=== PATIENT | female | born 1945 | race Caucasian/White ===

== ENCOUNTER 2025-07-18 21:41 | Emergency (ER) | payer MEDICARE ==
[~2025-07-18] VITALS: Ht 160 cm; Wt 82.4 kg
[~2025-07-18 21:41] MED LIST: LEVO100T PO; LOP12.5T PO; LOSA-415 PO; NOR5T PO; OMEP20TA23 PO; PHEN-786 PO; ROSU40TA89 PO; XAL0.005OS OP
--- NOTE | 2025-07-18 22:17 | Physician Documentation ---
History of Present Illness Chief Complaint: Flank Pain Stated Complaint: BACK PAIN Time Seen by MD: 22:03 Primary Medical Doctor: Dr. BARRAZA Source: patient Mode of Arrival: POV Exam Limitations: no limitations HPI 80-year-old female with complaints of generalized abdominal pain for approximately 30 days does have a doctor's appointment tomorrow but has been experiencing left flank pain that started around 630 tonight. Patient states the pain has been sharp and gassy pain and she battles intermittent diarrhea versus constipation. Patient states her last normal bowel movement was this morning and then had an episode of diarrhea. Patient states new onset left flank pain. Patient denies any nausea or vomiting. Patient states she had a recent colonoscopy a little over a year ago which she states was unremarkable. No history of diverticulitis or kidney stones. No fever chest pain or shortness of breath. Medication Reconciliation Allergies: Coded Allergies: Sulfa (Sulfonamide Antibiotics) (Unverified Allergy, Severe, HIVES, 01/10/25) Scheduled Amlodipine Besylate (Amlodipine Besylate), 5 MG PO DAILY Levothyroxine Sodium (Synthroid), 100 MCG PO DAILY, (Reported) Losartan Potassium* (Cozaar*), 2 TAB PO DAILY, (Reported) Metoprolol Tartrate (Lopressor tablet), 1 TAB PO Q12H, (Reported) Omeprazole Magnesium (Prilosec Otc), 20 MG PO DAILY, (Reported) Rosuvastatin Calcium (Rosuvastatin Calcium), 1 TAB PO DAILY, (Reported) Scheduled PRN Phenazopyridine Hcl (Pyridium tablet), 1 TAB PO Q8H PRN for bladder spasms Miscellaneous Medications Latanoprost (XALATAN ophth drops), 1 DROP OP, (Reported) Past Medical History Past Medical History: *CARDIOVASCULAR*, High Cholesterol, Hypertension, Hypothyroidism Past Surgical History: noncontributory Lives with: Spouse Lives In: Home Occupation: retired Review of Systems All Other Systems at this time: Reviewed and Negative Gastrointestinal: Reports: see HPI Physical Exam Vital Signs: Temperature: 97.7, Source: Oral, Heart Rate: 90, Respiratory Rate: 16, BP: 185/72, Pulse Oximetry: 97, Weight: 82.410 Oxygen Flow Rate: 0 Physical Exam General: Alert, no apparent distress. HEENT: PERRL, EOMI, no injection, moist mucous membranes. Neck: Full range of motion. Respiratory: Lungs clear, no respiratory distress. Chest: No accessory muscle use. Cardiovascular: Regular rate and rhythm, no murmurs. Gastrointestinal: Left flank pain during palpation no focal tenderness normal bowel sounds soft nonprotuberant Extremities: Normal range of motion, no deformity. Neurologic: Oriented x4. Psychiatric: Normal mood and affect. Skin: Normal color, warm and dry. No edema, no ecchymosis. Progress Results/Orders Results/Orders Vital Signs 07/18/25 21:43 Temp 97.7 Pulse 90 Resp 16 B/P (MAP) 185/72 Pulse Ox 97 O2 Flow Rate 0 EKG/XRAY/CT/US/VASC/MRI CT : Impression Exam: CT CT ABDOMEN PELVIS History: ABD PAIN left flank pain COMPARISON: None Technique: Multidetector spiral CT of the abdomen and pelvis was performed from lung bases to pubic symphysis. Intravenous contrast was not administered during this examination. Imaging was obtained. Axial, coronal and sagittal multiplanar reformats were performed by the technologist on a separate workstation. Radiation Dose : 1. Abdomen/Pelvis: CTDIvol 23.6 mGy, DLP 1167.75 mGy*cm. Findings: Lung Bases: No acute or significant lung base finding. Normal heart size. No pleural or pericardial effusion. Liver: Unremarkable Gallbladder and Biliary Tree: Unremarkable Spleen: Unremarkable Pancreas: Unremarkable Adrenal Glands: Unremarkable Kidneys: 4 mm obstructing stone in the distal left ureter, resulting in moderate left hydroureteronephrosis and perinephric edema Bladder: Unremarkable Bowel: Small hiatal hernia. The stomach is grossly normal in appearance. Small bowel and colon are normal in caliber and distribution. The appendix is normal. Ascites: Absent Lymphadenopathy: No mesenteric, retroperitoneal or periportal lymphadenopathy. Abdominal Wall and Mesentery: Unremarkable. Vasculature: Abdominal aortic dimensions are normal. Pelvic Organs: Hysterectomy. No adnexal masses. Musculoskeletal: No aggressive focal bony lesions, acute fractures or dislocat ion. IMPRESSION: 4 mm obstructing stone in the distal left ureter, resulting in moderate left hydroureteronephrosis and perinephric edema Small hiatal hernia. Radiation optimization: All CT scans at this facility use at least one of these dose optimization techniques: automated exposure control mA and/or kV adjustment per patient size (includes targeted exams where dose is matched to clinical indication) or iterative reconstruction. Electronically Signed by:YASH RILEY MD Date & Time: 07/18/25 0194 Medical Decision Making Additional information obtaine: N/A Findings Patient presented to the emergency room with flank pain as per HPI. Differentials include but are not limited to kidney stone, aortic pathology, pyelonephritis, constipation, intra-abdominal infection therefore emergent labs and imaging indicated. Labs and imaging consistent with kidney stone. No k idney injury, no urinary tract infection and patient's pain is greatly improved. ER precautions discussed. Differential Dx:Considerations: -Threatened Departure Disposition: HOME / SELF CARE / HOMELESS Impression: Primary Impression: Kidney stone Condition: Stable Discharge Instructions: Kidney Stones Referrals: NO PRIMARY CARE PROVIDER (PCP) Prescriptions Ondansetron 8mg ODT (Ondansetron Odt) 8 Mg Tab.rapdis 1 TAB PO Q6H for nausea/vomiting for 3 Days, #12 TAB 0 Refills Prov: BELLO BENITEZ MD 07/18/25 Signature Scribe Signature: No scribe Attestation: The note accurately reflects work and decisions made by me.Bello Benitez MD 07/18/25 23:57 The note accurately reflects work and decisions made by me.Sarah Salazar - CERAMIC ARTIST 07/18/25 22:16 SARAH SALAZAR NP Jul 18, 2025 22:16 BELLO BENITEZ MD Jul 18, 2025 23:57
--- NOTE | 2025-07-18 22:54 | RADIOLOGY REPORT ---
Exam: CT CT ABDOMEN PELVIS History: ABD PAIN left flank pain COMPARISON: None Technique: Multidetector spiral CT of the abdomen and pelvis was performed from lung bases to pubic symphysis. Intravenous contrast was not administered during this examination. Imaging was obtained. Axial, coronal and sagittal multiplanar reformats were performed by the technologist on a separate workstation. Radiation Dose : 1. Abdomen/Pelvis: CTDIvol 23.6 mGy, DLP 1167.75 mGy*cm. Findings: Lung Bases: No acute or significant lung base finding. Normal heart size. No pleural or pericardial effusion. Liver: Unremarkable Gallbladder and Biliary Tree: Unremarkable Spleen: Unremarkable Pancreas: Unremarkable Adrenal Glands: Unremarkable Kidneys: 4 mm obstructing stone in the distal left ureter, resulting in moderate left hydroureteronephrosis and perinephric edema Bladder: Unremarkable Bowel: Small hiatal hernia. The stomach is grossly normal in appearance. Small bowel and colon are normal in caliber and distribution. The appendix is normal. Ascites: Absent Lymphadenopathy: No mesenteric, retroperitoneal or periportal lymphadenopathy. Abdominal Wall and Mesentery: Unremarkable. Vasculature: Abdominal aortic dimensions are normal. Pelvic Organs: Hysterectomy. No adnexal masses. Musculoskeletal: No aggressive focal bony lesions, acute fractures or dislocation. IMPRESSION: 4 mm obstructing stone in the distal left ureter, resulting in moderate left hydroureteronephrosis and perinephric edema Small hiatal hernia. Radiation optimization: All CT scans at this facility use at least one of these dose optimization techniques: automated exposure control mA and/or kV adjustment per patient size (includes targeted exams where dose is matched to clinical indication) or iterative reconstruction.
[2025-07-18 23:11] LABS: MEAN PLATELET VOLUME 8.8 FL (7.4-10.4); RED CELL DISTRIBUTION WIDTH 15.5 % (11.5-14.5)
[2025-07-18] MEDS: ondansetron/PF 4mg/2ml inj IV ONE (23:20)
[2025-07-18 23:21] LABS: CREATININE 0.99 MG/DL (0.40-0.90); TOTAL CARBON DIOXIDE 26.5 MMOL/L (24-32); eCRCL 39 ML/MIN; eGFR 54 ML/MIN
[2025-07-18] MEDS: acetaminophen 1,000mg/100ml IV 100 ML IV ONE (23:21)
[2025-07-18 23:29] VITALS: BP 144/58; PULSE 70; RESP 14; O2SAT 96
[2025-07-18] MEDS: ketorolac trometh 15mg/ml vial 15 MG/ML ML IV ONE (23:33)
[2025-07-18 23:45] LABS: LEUKOCYTE ESTERASE ,URINE NEGATIVE (Neg); NITRITES, URINE NEGATIVE (Neg); OCCULT BLOOD,URINE MODERATE (Neg)
[2025-07-18 23:48] LABS: UA COLLECTION TYPE NON-SPECIFIED
[2025-07-18 23:49] LABS: SQUAMOUS EPITHELIAL CELL,UR MANY /LPF (FEW)
[2025-07-18] MEDS ORDERED: ONDA-245 PO (23:57)
[2025-07-19 00:10] VITALS: TEMP 97.7
== END 2025-07-19 00:12 | disposition home or self-care (01) ==
LOC: ER 21:42
DX: N20.0 Calculus of kidney (principal); E78.00 Pure hypercholesterolemia, unspecified; E03.9 Hypothyroidism, unspecified; I10 Essential (primary) hypertension; Z88.2 Allergy status to sulfonamides; Z79.899 Other long term (current) drug therapy
CPT/HCPCS: 36415; 74176; 80048; 81001; 83690; 85025; 96374; 96375; 99285; J0131; J1885; J2405